=== PATIENT | female | born 1965 | race Caucasian/White ===

== ENCOUNTER 2017-06-15 13:18 | Emergency (ER) | payer MEDICAID ==
[~2017-06-15] VITALS: Ht 162.6 cm; Wt 97.5 kg
[2017-06-15 14:44] VITALS: BP 115/70
== END 2017-06-15 14:44 | disposition home or self-care (01) ==
LOC: ED 13:18
DX: N39.0 Urinary tract infection, site not specified (principal); M79.1 Myalgia; Z98.51 Tubal ligation status

== ENCOUNTER 2018-08-24 10:37 | Emergency (ER) | payer OTHER ==
[~2018-08-24] VITALS: Ht 154.9 cm; Wt 0.2 kg
[2018-08-24 10:50] VITALS: Ht 154.9 cm; Wt 0.2 kg
[2018-08-24 12:49] VITALS: BP 137/87
== END 2018-08-24 12:49 | disposition home or self-care (01) ==
LOC: ED 10:37
DX: R51 Headache (principal); R11.0 Nausea; R42 Dizziness and giddiness
CPT/HCPCS: J1885; Q0162

== ENCOUNTER 2020-04-17 18:35 | Emergency (ER) | payer OTHER ==
[~2020-04-17] VITALS: Ht 162.6 cm; Wt 77.1 kg
[2020-04-17 18:47] VITALS: Ht 162.6 cm; Wt 77.1 kg
[2020-04-17 22:43] VITALS: BP 108/56
== END 2020-04-17 22:43 | disposition home or self-care (01) ==
LOC: ED 18:35
DX: M54.12 Radiculopathy, cervical region (principal); R51 Headache; E11.9 Type 2 diabetes mellitus without complications